=== PATIENT | female | born 1980 | race Caucasian/White ===

== ENCOUNTER 2017-11-03 16:07 | Emergency (ER) | payer OTHER, SELFPAY ==
[2017-11-03 16:08] VITALS: BP 113/80; PULSE 85; RESP 16; TEMP 36.4; O2SAT 98; BMI 33.2
--- NOTE | 2017-11-03 16:26 | EKG12_ITS ---
Test Reason : BACK Blood Pressure : / mmHG Vent. Rate : 064 BPM Atrial Rate : 064 BPM P-R Int : 144 ms QRS Dur : 080 ms QT Int : 394 ms P-R-T Axes : 016 013 022 degrees QTc Int : 406 ms Normal sinus rhythm Normal ECG Confirmed by JEANETTE LINDSAY ([id number]), continuity editor NATALIE PASTOR ([id number] on 11/13/2017 6:13:52 PM Referred By: FELIX Confirmed By:JEANETTE LINDSAY
--- NOTE | 2017-11-03 16:26 | RAD_ITS ---
STUDY: X-RAY CHEST REASON FOR EXAM: Female, 37 years old. Chest pain TECHNIQUE: Frontal view of the chest COMPARISON: None. FINDINGS: The lungs are clear. There are no pleural effusions. There is no pneumothorax. The heart is normal in size. The visualized osseous structures are within normal limits. RAD/Chest 1 View (Portable) IMPRESSION: No acute thoracic pathology. Electronically Signed: Alcides Sauer, at 17:35 EDT Tel , Service support ,
[2017-11-03 16:50] LABS: Absolute Neutrophil Count 7.5 X10^3/uL (2.0-7.7); Basophil# 0.04 X10^3/uL; Basophil% 0.4 % (0-1); Eosinophil# 0.37 X10^3/uL; Eosinophils% 3.5 % (0-5); Hematocrit 39.3 % (37-47); Hemoglobin 13.5 g/dl (12.0-15.0); Lymphocyte % 17.9 % (19-41); Mean Corp Hgb Conc 34.4 g/gl (32-36); Mean Corpuscular Volume 87.3 fL (81-99); Mean Platelet Vol. 10.9 fl (6.2-12.0); Monocyte# 0.81 X10^3/uL; Monocyte% 7.6 % (0-10); Neutrophil # 7.47 X10^3/uL (2.7-7.7); Neutrophil % 70.5 % (47-70); Platelet Count 249 K/mm3 (150-450); RBC Distribution Width CV 14.8 % (11.6-14.6); RBC Distribution Width SD 46.5 fl (35.1-43.9); White Blood Count 10.6 K/mm3 (4.4-11.0)
[2017-11-03 16:51] LABS: POSITIVE COUNT NO; POSITIVE DIFFERENTIAL NO; POSITIVE MORPHOLOGY NO
[2017-11-03] MEDS: Ondansetron 4 MG/2 ML Vial IV (16:58)
[2017-11-03] MEDS: Morphine 4 MG/ML Syringe IV (16:58)
[2017-11-03] MEDS: Ketorolac 30 MG/ML Syringe IV (16:58)
[2017-11-03] MEDS: 0.9% Normal Saline 1,000 ML 150 ML IV (17:00)
[2017-11-03 17:01] LABS: Mucous, Urine 0 SEEN /hpf (<or=2+)
[2017-11-03 17:02] LABS: AST(SGOT) 16 U/L (15-37); Alanine Aminotransfer ALT/SGPT 18 U/L (13-56); Albumin, Serum 3.3 g/dL (3.2-5.0); Alkaline Phosphatase 72 U/L (45-117); Anion Gap 6 (5-15); BUN 16 mg/dL (7-18); BUN/Creat Ratio 20.4 RATIO (10-20); Bilirubin, Direct 0.08 mg/dL (0.00-0.30); Calcium,Total 8.2 mg/dL (8.5-10.1); Chloride 111 mmol/L (98-107); Creatinine, Serum 0.79 mg/dL (0.55-1.02); EST Glomerular Filtration Rate 87 mL/min (>60); Est Glom Filt Rate - Afr Amer 105 mL/min (>60); Estimated Creatinine Clearance 75.62 ml/min; Globulin 2.9 g/dL (2.2-4.2); Glucose 102 mg/dL (74-106); Lipase 77 U/L (73-393); Potassium 4.1 mmol/L (3.5-5.1); Protein, Total 6.2 g/dL (6.4-8.2); Sodium Level 142 mmol/L (136-145)
[2017-11-03 17:06] LABS: Color, Urine Yellow (Yellow); Glucose, Dipstick Normal (Normal); Ketone-Dipstick Negative (Negative); Leukocyte Esterase-Dipstick 100 /ul (Negative); Nitrite-Dipstick Positive (Negative); Occult Blood-Urine 250 /ul (Negative); Protein-Dipstick 15 mg/dl (Negative); Urine Bilirubin Dipstick Negative (Negative); Urine Clarity Sl. Cloudy (Clear); Urine Urobilinogen Normal (Normal)
[2017-11-03 17:13] LABS: Pregnancy, Serum, hCG Quali. NEGATIVE Negative (0-9 Nonpreg)
[2017-11-03 17:25] LABS: D-Dimer Quantitative (DVT/PE) 0.37 FEU/ug/m (0.27-0.49)
[2017-11-03 17:27] LABS: Bacteria 2+ /hpf (None Seen); Red Blood Cells-Urine 10-25 SEEN /hpf (0-5); Squamous Epithelial Cells - UA 0-5 SEEN /hpf (5-10); White Blood Cells 5-10 SEEN /hpf (0-5)
--- NOTE | 2017-11-03 17:56 | ED.DCSUM_ITS ---
- ER Visit Summary Date of Service: 11/03/17 Chief Complaint: Back pain History of Present Illness: The patient is a 37 F who states 2 days ago she developed back pain. She described it around the bra line. Pain is worse with deep breath. Today she developed epigastric abdominal pain and nausea as well. She has had occasional dry heaves. She denies any recent injury or change in activity. She has had prior kidney stones but states this does not feel similar. She has had prior cholecystectomy. Patient has never had pancreatitis. She denies any recent alcohol consumption. Physical Examination: Vital signs are unremarkable. Patient sitting upright in bed. She is in no acute distress and nontoxic appearing. Head and neck examination is normal. Heart is regular rate and rhythm. Lung sounds are clear. Abdomen is soft with tenderness in the epigastric region. There is no guarding or rebound. Back examination reveals tenderness in the musculature over the right CVA region. There is no midline thoracic or lumbar tenderness. There are no overlying skin changes. Neuro exam is normal with good strength and sensation throughout. She has strong distal pulses. Test Results: EKG is sinus at 64 with no sign of acute ischemia. Chest x-ray shows no acute thoracic pathology. CBC and chemistry studies normal. LFTs and lipase are normal. Urinalysis is positive for nitrites. She has 5-10 white blood cells with 10-25 RBCs. She has 2+ bacteria. Patient does note that she is currently on her menstrual period. D-dimer is negative. Patency test is negative. Emergency Department Course and Treatment: Patient is given morphine, Toradol, Zofran, and IV fluids. On repeat evaluation she is resting comfortably. Urine will be sent for culture. She will be covered with antibiotics. Because she does have tenderness over the CVA region we will do a more prolonged course of antibiotics. Patient does report she has been taking quite a bit of ibuprofen and with epigastric pain I will avoid anti-inflammatories. She will be given a short course of Percocet. Treatment Plan: [] Disposition: Discharge Impression: Cystitis with early pyelonephritis. This note was generated with [employer] dictation software. It may contain incorrect words, spelling, and punctuation that were not noted in review of the chart prior to signing ED Disposition - Plan for ED Patient: Chief Complaint: Back Referrals: Care Physician,No Primary [Primary Care Provider] -
--- NOTE | 2017-11-03 17:58 | ED.DEP ---
ED Disposition - Plan for ED Patient: Disposition: Home or Assisted Living Chief Complaint: Back Instructions: ED UTI Cystitis Female Prescriptions: Oxycodone HCl/Acetaminophen [Percocet 5/325] 1 tablet PO Q6H PRN PRN 3 Days #12 tablet PRN Reason: Pain Smz/Tmp Ds [Bactrim Ds] 1 tab PO BID #20 tab Referrals: Vicente Franz MD [STAFF PHYSICIAN] - As Needed
[2017-11-03] MEDS: Smz/Tmp Ds Tablet 1 TABLET PO (18:05)
[2017-11-03 18:13] VITALS: BP 110/75; PULSE 51; RESP 12; O2SAT 99
== END 2017-11-03 18:13 | disposition home or self-care (01) ==
PROVIDERS: Emergency Provider Emergency Medicine
DX: N30.90 Cystitis, unspecified without hematuria (principal); N12 Tubulo-interstitial nephritis, not specified as acute or chronic; Z87.442 Personal history of urinary calculi; Z72.0 Tobacco use
CPT/HCPCS: 71045; 80048; 80076; 81001; 83690; 84703; 85025; 85379; 87086; 87088; 87186; 93005; 96361; 96374; 96375; 99285; J7030; J2405

== ENCOUNTER 2018-01-15 23:53 | Emergency (ER) | payer OTHER, SELFPAY ==
[2018-01-15 23:53] VITALS: BP 129/73; PULSE 76; RESP 16; TEMP 36.4; O2SAT 99; BMI 31.1
[2018-01-16 01:14] LABS: Bacteria 0 SEEN /hpf (None Seen); Mucous, Urine 0 SEEN /hpf (<or=2+); Red Blood Cells-Urine 0 SEEN /hpf (0-5)
[2018-01-16 01:15] LABS: Color, Urine Yellow (Yellow); Glucose, Dipstick Normal (Normal); Ketone-Dipstick 5 mg/dl (Negative); Leukocyte Esterase-Dipstick 500 /ul (Negative); Nitrite-Dipstick Positive (Negative); Occult Blood-Urine 10 /ul (Negative); Protein-Dipstick 15 mg/dl (Negative); Specific Gravity, Urine 1.025 (1.002-1.030); Urine Bilirubin Dipstick Negative (Negative); Urine Clarity Sl. Cloudy (Clear); Urine Urobilinogen Normal (Normal)
[2018-01-16 01:19] LABS: Internal QC Validated? YES +Cl - CLEAR BKGD; Pregnancy, Urine Negative Negative
[2018-01-16 01:22] LABS: Squamous Epithelial Cells - UA > 100 SEEN /hpf (5-10); White Blood Cells 5-10 SEEN /hpf (0-5)
[2018-01-16] MEDS: Ketorolac 60 MG/2 ML Vial IM (02:23)
[2018-01-16 02:25] VITALS: BP 133/88; PULSE 66; RESP 16; O2SAT 100
--- NOTE | 2018-01-16 02:31 | ED.DCSUM_ITS ---
- ER Visit Summary Date of Service: 01/16/18 Chief Complaint: Right flank pain History of Present Illness: The patient is a 37 F reports right flank pain for the past 6 hours. She has not had any urinary symptoms. No hematuria. She does have a history of both kidney stones as well as kidney infections. She states with those she never really had dysuria or hematuria either. She has had a cholecystectomy and prior kidney stone surgery. One ovary has been removed. Physical Examination: Vital signs unremarkable. Patient's lying in bed no acute distress. Heart is regular rate and rhythm. Lung sounds are clear. Abdomen is soft and nontender. She has no CVA tenderness on exam. Test Results: Urinalysis shows greater than 100 epithelial cells and only 5-10 white cells. test negative. CT flank shows left renal stones. Normal-appearing appendix. Emergency Department Course and Treatment: Patient had taken ibuprofen and was pain-free at the time of my exam. After CT scan pain did recur. She was given an IM injection of Toradol. She will be given oxycodone home pack only. She will be given prescription for naproxen. Treatment Plan: [] Disposition: Discharge Impression: Right flank pain, uncertain etiology This note was generated with [employer] dictation software. It may contain incorrect words, spelling, and punctuation that were not noted in review of the chart prior to signing ED Disposition - Plan for ED Patient: Chief Complaint: Flank Pain Referrals: Care Physician,No Primary [Primary Care Provider] -
--- NOTE | 2018-01-16 02:31 | ED.DEP ---
ED Disposition - Plan for ED Patient: Disposition: Home or Assisted Living Chief Complaint: Flank Pain Instructions: ED Flank Pain Uncertain Cause Prescriptions: Naproxen [Naprosyn] 500 mg PO BID PRN PRN #20 tablet PRN Reason: Pain Referrals: Sadia Jacinto MD [STAFF PHYSICIAN] - As Needed
[2018-01-16 02:38] VITALS: BP 138/89; PULSE 59; RESP 16; O2SAT 98
[2018-01-16] MEDS: oxyCODONE 5 MG Tablet PO (02:42)
== END 2018-01-16 02:45 | disposition home or self-care (01) ==
PROVIDERS: Emergency Provider Emergency Medicine
DX: R10.9 Unspecified abdominal pain (principal); N20.0 Calculus of kidney; Z87.442 Personal history of urinary calculi; Z90.49 Acquired absence of other specified parts of digestive tract; Z72.0 Tobacco use
CPT/HCPCS: 74176; 81001; 81025; 96372; 99283